=== PATIENT | female | born 1950 | race Caucasian/White ===

== ENCOUNTER 2024-12-29 21:49 | Observation (INO) | payer MEDICARE, SELFPAY ==
[2024-12-29 22:07] VITALS: BP 134/89; PULSE 109; RESP 14; TEMP 36.5; O2SAT 98; BMI 23.4
--- NOTE | 2024-12-29 22:08 | HMH.EDGENADL ---
Discharge Plan Disposition Patient Disposition: Admitted Condition: Good Clinical Impressions Clinical Impression: Transaminitis Discharge ED Provider: Radha Che General Adult HPI General Chief complaint: Dizziness Stated complaint: back,side,stomach pain, weak Time Seen by Provider: 12/29/24 22:08 History of Present Illness HPI narrative: Patient is a 74-year-old female with no significant past medical history who presented to the emergency department with left flank pain bilateral lower abdominal pain since yesterday. Patient states that her pain is currently a 6 out of 10. Does not radiate. Patient denies any urinary symptoms. Patient denies any fevers. Patient denies any nausea vomiting or diarrhea. Patient denies any prior abdominal surgeries. Patient has not had any fevers. Patient denies any recent illnesses. Patient has not had any recent travel. Patient denies any chest pain shortness of breath. Related Data Home Medications ?Medication ?Instructions ?Recorded ?Confirmed calcium carbonate 1,250 mg PO DAILY 12/30/24 12/30/24 cetirizine 10 mg tablet 10 mg PO DAILY 12/30/24 12/30/24 fluoxetine 40 mg capsule 40 mg PO DAILY 12/30/24 12/30/24 losartan 50 mg tablet 50 mg PO BID 12/30/24 12/30/24 montelukast 10 mg tablet 10 mg PO HS 12/30/24 12/30/24 omeprazole 20 mg capsule,delayed 20 mg PO DAILY 12/30/24 12/30/24 release simvastatin 20 mg tablet 20 mg PO HS 12/30/24 12/30/24 Allergies Allergy/AdvReac Type Severity Reaction Status Date / Time Unable to Assess Allergy Verified 12/29/24 22:14 [facility] Disclaimer: The information contained in this section may have been updated after the patient was seen, as this information can be updated by other users. Social History Smoking Status: Never smoker alcohol intake: never current occupational status: other Travel in the last 8 weeks?: None ROS Obtained: Yes All systems reviewed & no additional complaints except as documented and Yes Systems reviewed as appropriate & no additional complaints except as documented Physical Exam General General appearance: alert and in no apparent distress Head Head exam: atraumatic, normocephalic and normal inspection Eye Eye exam: Present normal appearance, PERRL and EOMI; Absent scleral icterus ENT ENT exam: Present normal exam and normal external ear exam Neck Neck exam: Present normal inspection and full ROM Chest Chest inspection: Present normal inspection and symmetric chest wall rise Respiratory Respiratory exam: Present normal lung sounds bilaterally; Absent respiratory distress or wheezes Cardiovascular Cardiovascular exam: Present regular rate, normal rhythm and normal heart sounds Abdominal Exam Abdominal exam: Present soft, distention and tenderness (Left CVA tenderness, bilateral lower quadrant abdominal tenderness); Absent guarding or rebound Extremities Exam Extremities exam: Present normal inspection and full ROM Back Exam Back exam: Present normal inspection and full ROM Neurological Exam Neurological exam: Present alert and oriented X3 Psychiatric Psychiatric exam: Present normal affect and normal mood Skin Skin exam: Present warm and dry Medical Decision Making Medical Records Medical records reviewed: Yes I reviewed the patient's medical records. Screening: Per USPSTF and CDC recommendations, given the prevalence of disease in our region, it is our hospital?s policy to screen for HIV and viral Hepatitis for all patients aged 18 and over and those with ongoing risk factors. Cole Inquiry Pt receiving controlled substance: No Vital Signs: 12/29/24 22:07 12/29/24 22:15 12/29/24 22:21 Temperature 97.7 F 97.7 F Temperature Source Oral Oral Pulse Rate 109 H 98 H Pulse Rate [Right] 109 H Respiratory Rate 14 14 19 Blood Pressure 134/89 134/89 Blood Pressure [Right Arm] 134/89 Blood Pressure Mean [Right Arm] 104 02 Sat by Pulse Oximetry 98 98 98 Oxygen Delivery Method Room Air Room Air Room Air 12/30/24 00:03 Temperature 98.1 F Temperature Source Pulse Rate 81 Pulse Rate [Right] Respiratory Rate 18 Blood Pressure 150/89 H Blood Pressure [Right Arm] Blood Pressure Mean [Right Arm] 02 Sat by Pulse Oximetry 96 Oxygen Delivery Method Room Air Lab Data Lab results reviewed: Yes I reviewed the patient's lab results. Lab Results 12/29/24 22:05: WBC 5.8, RBC 4.92, Hgb 14.4, Hct 44.6, MCV 90.7, MCH 29.3, MCHC 32.3, RDW 14.3, Plt Count 222, MPV 10.8 H, Neut % (Auto) 59.6, Lymph % (Auto) 27.1, Williamson % (Auto) 12.9 H, Eos % (Auto) 0.0 L, Baso % (Auto) 0.2, Neut # (Auto) 3.5, Lymph # (Auto) 1.6, Williamson # (Auto) 0.8, Eos # (Auto) 0.0, Baso # (Auto) 0.0, PT 10.7, INR 0.96, Sodium 134 L, Potassium 3.3 L, Chloride 93 L, Carbon Dioxide 28, Anion Gap 16.3 H, BUN 12, Creatinine 0.90, Estimated Creat Clear 45, Estimated GFR 62, Est GFR ( Amer) 74, Glucose 151 H, Lactate 2.5 H, Calcium 9.9, Magnesium 2.2, Total Bilirubin 0.7, AST 669 H*, ALT 517 H*, Alkaline Phosphatase 68, Total Protein 8.6 H, Albumin 5.0, Globulin 3.6 H, Albumin/Globulin Ratio 1.4, Lipase 142, Acetaminophen < 10 L 12/29/24 22:05 12/29/24 22:05 Orders (Tests/Meds): ED MEDICATIONS Discontinued Medications Generic Name Dose Route Start Last Admin Trade Name Freq PRN Reason Stop Dose Admin Sodium Chloride 1,000 mls @ 999 mls/hr 12/29/24 22:12 12/29/24 22:30 Sod Chlor 0.9% 1000ml Bag IV 12/29/24 23:12 999 mls/hr .Q1H1M ONE Administration Iopamidol 75 ml 12/29/24 22:54 12/29/24 22:55 Iopamidol-370 (76%);100ml Bottle IV 12/29/24 22:55 75 ml ONCE ONE Administration Morphine Sulfate 4 mg 12/29/24 22:12 12/29/24 22:32 Morphine 2mg/Ml Syringe IV 12/29/24 22:13 4 mg ONCE ONE Administration Ondansetron HCl 4 mg 12/29/24 22:12 12/29/24 22:31 Ondansetron 4mg/2ml Vial IM 12/29/24 22:13 4 mg ONCE ONE Administration Sodium Chloride 10 ml 12/29/24 22:54 12/29/24 22:55 Sodium Chloride 0.9% 10ml Syr (Rad Only) IV 12/29/24 22:55 10 ml ONCE ONE Administration ORDERS Category Date Time Status CT abdomen pelvis w con Stat Cat Scan 12/29/24 22:12 Completed POCUS Point of Care (ER Only) Stat Exams 12/29/24 23:03 Completed Acetaminophen Stat Lab 12/29/24 22:05 Completed CBC w/Auto Diff [Complete Blood Count Auto Diff] Stat Lab 12/29/24 22:05 Completed CMP [Comprehensive Metabolic Panel] Stat Lab 12/29/24 22:05 Completed Hepatitis Panel Stat Lab 12/29/24 22:05 Received Lactic Acid Stat Lab 12/29/24 22:05 Completed Lipase Stat Lab 12/29/24 22:05 Completed MAG [Magnesium] Stat Lab 12/29/24 22:05 Completed Prothrombin Time INR Stat Lab 12/29/24 22:05 Completed UA [Urinalysis and Microscopic] Stat Lab 12/29/24 22:15 Ordered Urine Culture Stat Micro 12/29/24 22:15 Ordered Medical Decision Narrative: Patient is an otherwise healthy 74-year-old female with no significant past medical history who presented to the emergency department with abdominal pain and left flank pain. On arrival, patient was hemodynamically stable with unremarkable vital signs. Differential includes but not limited to: Appendicitis, diverticulitis, intra-abdominal abscess, UTI, pyelonephritis, amongst others. Patient's labs were reviewed and interpreted by myself: Patient had no leukocytosis on CBC, hemoglobin was stable. CMP was unremarkable. INR was normal. AST and ALT were significantly elevated AST was 669 and ALT was 517. Bilirubin was normal. Lactate mildly elevated at 2.5. Tylenol level normal, hepatitis panel sent. CT abdomen pelvis did show a right 4 cm ovarian cyst but no other acute pathology. Patient is from [place] therefore no further lab work was able to be seen or for comparison. Hospital medicine was consulted for admission for workup of patient's transaminitis. UA was pending at the time of admission. Critical Care Critical Care Time Critical Care Time: No
--- NOTE | 2024-12-29 22:12 | CT_ITS ---
PROCEDURE INFORMATION: Exam: CT Abdomen And Pelvis With Contrast Exam date and time: 12/29/2024 10:55 PM Age: 74 years old Clinical indication: Abdominal pain; Localized; Left lower quadrant (llq); Additional info: Llq and L flank pain TECHNIQUE: Imaging protocol: Computed tomography of the abdomen and pelvis with contrast. Radiation optimization: All CT scans at this facility use at least one of these dose optimization techniques: automated exposure control; mA and/or kV adjustment per patient size (includes targeted exams where dose is matched to clinical indication); or iterative reconstruction. Contrast material: ISOVUE; Contrast volume: 75 ml; Contrast route: IV; COMPARISON: No relevant prior studies available. FINDINGS: Bibasilar atelectasis and scarring Liver: Normal. No mass. Gallbladder and biliary ducts: Normal. No calcified stones. No ductal dilation. Pancreas: Normal. No ductal dilation. Spleen: Normal. No splenomegaly. Adrenal glands: Normal. No mass. Kidneys and ureters: No hydronephrosis. Multiple cysts involving bilateral kidneys including parapelvic cyst. No obstructive uropathy Stomach and bowel: Diverticulosis without diverticulitis. No small bowel obstruction. No colitis Appendix: No evidence of appendicitis. Intraperitoneal space: Unremarkable. No free air. No significant fluid collection. Vasculature: Unremarkable. No abdominal aortic aneurysm. Lymph nodes: Unremarkable. No enlarged lymph nodes. Urinary bladder: Unremarkable as visualized. Reproductive: 4 cm right ovarian cyst. Bones/joints: Unremarkable. No acute fracture. Soft tissues: Unremarkable. IMPRESSION: No acute posttraumatic findings in the abdomen pelvis Right ovarian cyst. Is abnormal for patient of this age. Recommend outpatient nonemergent ultrasound to exclude underlying neoplasm COMMENTS: Consistent with the [employer]'s Incidental Findings Committee white paper (J Am Cira Radiol 2018): Any incidental renal lesion less than 1 cm or classified as too small to characterize, or any incidental cystic renal lesion characterized as simple-appearing, is likely benign. No follow-up imaging is recommended for these lesions per consensus recommendations based on imaging criteria.
[2024-12-29 22:15] VITALS: BP 134/89; PULSE 109; RESP 14; TEMP 36.5; O2SAT 98
--- OUTSIDE RECORDS SUMMARY | 2024-12-29 22:19 | XMS_ITS | Clinical Summary ---
Author Organization [facility] Address [address] [place] [address] Care Team Providers Care Lockstitch Shoulder Joiner Name Role Phone Unavailable Primary Care Provider Unavailabl e Social History Tobacco Use Types Packs/Day Years Used Date Smoking Tobacco: Never Assessed Comments Unknown Sex and Gender Information Value Date Recorded Sex Assigned at Not on file Legal Sex Female 10:39 PM EDT Gender Identity Not on file Sexual Orientation Not on file Plan of Treatment Health Maintenance Due Date Last Done Comments Hepatitis C Screening 1952 DTap,Tdap,and Td (1 - Tdap) 1963 Mammogram Screening 1992 Colonoscopy 1997 Pneumococcal 50+ (1 of 1 - PCV) 2002 Shingrix (#1) 2002 DEXA Scan 2017 Influenza Vaccine (#1) 2024 RSV Vaccine (60+ or ) (1 - 1-dose 75+ series) 2027 HPV Aged Out No longer eligi ble based on patient's age to complete this topic Meningococcal conjugate susan nt 4 (MCV4) Aged Out No longer eligible b ased on patient's age to complete this topic RSV Immunization (<20 months) Aged Out No longer eligible based on patient's age to complete this topic
--- OUTSIDE RECORDS SUMMARY | 2024-12-29 22:19 | XMS_ITS | Clinical Summary ---
Author Organization [facility] Address [address], [address] [place] [address] Care Team Providers Care Optical Laboratory Mechanic Name Role Phone Shama Collins PA-C Primary Care Provider [phone] Allergies Active Allergy Reactions Criticality Noted Date Comments Paroxetine Hcl 12/08/2014 Medications FLUoxetine (PROZAC) 20 MG capsule Take 20 mg by mouth daily Active lisinopril (PRINIVIL;ZESTR IL) 10 MG tablet Take 10 mg by mouth daily Active cetirizine (ZYRTEC) 10 MG tablet Take 10 mg by mouth daily Active simvastatin (ZOCOR) 20 MG tablet Take 20 mg by mouth nightly Active latanoprost (XALATAN) 0.005 % ophthalmic solution Place 1 drop into both eyes nightly Active fluticasone (FLOVENT HFA) 110 MCG/ACT inhaler Inhale 1 puff into the lungs 2 times daily Active calcium-vitamin D (OSCAL-500) 500-200 MG-UNIT per tablet Take 1 tablet by mouth 2 times daily Active oxyCODONE (ROXICODONE) 5 MG immediate release tablet Take 1-2 tablets by mouth every 4 hours as needed for Pain 30 tablet 0 12/12/2014 Active Active Problems Problem Noted Date Diagnosed Date Diverticulitis large intestine 12/08/2014 Diverticulitis of large inte beba without perforation or abscess without bleeding Diverticulitis of large intestine Immunizations Immunization Administration Dates Next Due Pneumococcal, PPSV23, PNEUMO VAX 23, (age 2y+), SC/IM, 0.5mL 12/10/2014 Social History Tobacco Use Types Packs/Day Years Used Date Smoking Tobacco: Former Alcohol Use Standard Drinks/Week Comments No 0 (1 standard drink = 0.6 oz pur e alcohol) Comments No Sex and Gender Information Value Date Recorded Sex Assigned at Not on file Legal Sex Female 6:03 PM EDT Gender Identity Not on file Sexual Orientation Not on file Last Filed Vital Signs Vital Sign Reading Time Taken Comments Blood Pressure 132/86 12/12/2014 1:46 PM EDT Pulse 98 12/12/2014 1:46 PM EDT Temperature 37.1 C (98.7 F) 12/12/2014 1:46 PM EDT Respiratory Rate 14 12/12/2014 1:46 PM EDT Oxygen Saturation 93% 12/12/2014 1:46 PM EDT Inhaled Oxygen Concentration - - Weight - - Height - - Body Mass Index - - Plan of Treatment Not on file Insurance Advance Directives * Full Code (Latest Code Status on File) Date Activated Date Inactivated Comments 12/08/2014 9:05 PM 12/12/2014 7:43 PM Care Teams Optical Laboratory Mechanic Relationship Specialty Start Date End Date Shama Collins PA-C PCP - General Physician Phlebotomy Services Technician 12/09/14
--- OUTSIDE RECORDS SUMMARY | 2024-12-29 22:19 | XMS_ITS | Referral Summary ---
Author Organization [facility] Address [address] [place] [id number] Care Team Providers Care Computer Information Systems Professor Name Role Phone Unavailable Primary Care Provider Unavailabl e Social History Tobacco Use Types Packs/Day Years Used Date Smoking Tobacco: Never Assessed Comments Unknown Sex and Gender Information Value Date Recorded Sex Assigned at Not on file Legal Sex Female 10:39 PM EDT Gender Identity Not on file Sexual Orientation Not on file Plan of Treatment Not on file
[2024-12-29 22:21] VITALS: BP 134/89; PULSE 98; RESP 19; O2SAT 98
[2024-12-29 22:22] LABS: Hematocrit 44.6 % (37.0-47.0); Hemoglobin 14.4 g/dL (12.2-16.2); Immature Granulocytes % 0.2 %; Mean Corpuscular HGB Conc 32.3 g/dL (31.8-35.4); Mean Corpuscular Hemoglobin 29.3 pg (27.0-31.2); Mean Corpuscular Volume 90.7 fl (81-99); Nucleated Red Blood Cells % 0 %; Platelet Count 222 K/mm3 (142-424); Red Blood Count 4.92 M/mm3 (4.20-5.40); Red Cell Distribution Width-SD 47.9 fL; White Blood Count 5.8 K/mm3 (4.8-10.8)
[2024-12-29] MEDS: 0.9 % SODIUM CHLORIDE 1000ML 1,000 ML 999 ML IV (22:30)
[2024-12-29 22:31] LABS: Albumin Level 5.0 g/dl (3.5-5.0); Chloride 93 mmol/L (98-107); Potassium 3.3 mmoL/L (3.5-5.1); Sodium 134 mmol/L (136-145)
[2024-12-29] MEDS: ONDANSETRON 4MG/2ML VIAL 4 MG IM (22:31)
[2024-12-29] MEDS: MORPHINE 2MG/ML SYRINGE 4 MG IV (22:32)
[2024-12-29 22:34] LABS: Alanine Aminotransferase 517 U/L (12-78); Albumin/Globulin Ratio 1.4 (1.1-1.8); Alkaline Phosphatase 68 U/L (38-126); Anion Gap 16.3 mEq/L (5-15); Aspartate Amino Transferase 669 U/L (14-36); Bilirubin,Total 0.7 mg/dl (0.2-1.3); Blood Urea Nitrogen 12 mg/dl (7-17); Calcium 9.9 mg/dl (8.4-10.2); Carbon Dioxide 28 mmol/L (22.0-30.0); Creatinine Clearance Estimated 45 mL/min (50-200); Creatinine,Serum 0.90 mg/dl (0.52-1.04); Estimated Glomerular Filt Rate 62 ml/min (>60); GFR (African American) 74 ML/MIN (>60); Globulin 3.6 g/dL (1.3-3.2); Glucose 151 mg/dl (74-100); Lipase 142 U/L (23-300); Total Protein,Serum 8.6 g/dl (6.3-8.2)
[2024-12-29 22:35] LABS: Magnesium 2.2 mg/dl (1.6-2.3)
[2024-12-29] MEDS: IOPAMIDOL-370 (76%);100ML BOTTLE 75 ML IV (22:55)
[2024-12-29] MEDS: SODIUM CHLORIDE 0.9% 10ML SYR (RAD ONLY) 10 ML IV (22:55)
[2024-12-29 23:09] LABS: Acetaminophen < 10 ug/ml (10-30)
[2024-12-29 23:11] LABS: INR 0.96 (0.9-1.1); Prothrombin Time 10.7 seconds (10.1-12.5)
--- NOTE | 2024-12-30 00:02 | PC.NURSE ---
House Supervisior contacted r/t Admit
[2024-12-30 00:03] VITALS: BP 150/89; PULSE 81; RESP 18; TEMP 36.7; O2SAT 96
--- NOTE | 2024-12-30 00:17 | US_ITS ---
FINAL REPORT TECHNIQUE: Sonographic images of the right upper quadrant were obtained. CLINICAL HISTORY: elevated liver enzymes FINDINGS: PANCREAS: Unremarkable. LIVER: Homogeneous. No focal hepatic lesion. No intrahepatic biliary ductal dilatation. GALLBLADDER: There is a small echogenic focus in the dependent portion of the gallbladder which is nonmobile and without shadowing, favor polyp. No gallbladder wall thickening or pericholecystic fluid. COMMON DUCT: 4 mm. Normal for age. RIGHT KIDNEY: The right kidney measures 9.9 cm. There is hydronephrosis without mass or stone.. FREE FLUID: None. IMPRESSION: 1. Gallbladder polyp. 2. Mild right hydronephrosis. Reviewed, Interpreted and Dictated by Roseanne Loredo MD Transcribed by Roxanne Ty Authenticated and [facility]
--- NOTE | 2024-12-30 00:23 | PC.NURSE ---
Report called to UNRULY Martinez
[2024-12-30 00:24] VITALS: BP 150/89; PULSE 81; RESP 18; TEMP 36.7; O2SAT 96
--- NOTE | 2024-12-30 00:29 | P.HP_ITS ---
<Statement entered by Barak Arciniega MD - 12/30/24 09:11> Personally evaluated the patient and agree with plan of care as outlined by the [employer] SUPERVISOR. History of Present Illness *Admission Date: 12/30/24 *Reason for visit:: Abdominal pain *History of present illness: This is a 74-year-old female who has a past medical history significant for diverticulosis, hyperlipidemia, GERD, and hypertension who presents with a chief complaint of bilateral lower abdominal pain and back pain. Due to patient's symptomology she presented to the emergency room for evaluation. While in the emergency room, CT scan of the abdomen pelvis was negative for any acute intra-abdominal or intrapelvic process. Patient had an incidental finding of an elevated AST and ALT. Due to these findings, patient has been admitted for further management. During my evaluation of the patient, patient states she is here visiting her daughter from [place] and, she has been having the a forementioned symptomology for the past 2 days that have progressively gotten worse. Patient states she has had a poor appetite and has not been able to eat or drink. She was able to tolerate some chicken noodle soup and some crackers last night but other than that she has not eaten very much. Patient states that she had a subjective fever but she did not check her temperature. Moreover, patient states that she has been experiencing weakness. She also mentions that she has been having an i nability to lay flat more so due to lower back pain. On further questioning, patient reports she recently was seen by her primary care physician on Saturday of last week. She reports he/C obtained routine labs and they were within normal limits. Patient was unsure what lab values were obtained. She is currently denying any chest pain, lightheadedness, dizziness, rigors, shortness of breath, dyspnea, hematochezia, hematemesis, hematuria, nausea, vomiting, PND, orthopnea, lower extremity edema, or diarrhea. Additional pertinent vitals obtained include sodium 134, potassium of 3.3, chloride of 93, blood glucose of 151, lactate of 2.5, AST of 669, ALT of 517, total protein 8.6, and Tylenol level less than 10. Patient reports she does not use/take Tylenol but she did take 1 aspirin yesterday. [facility] Disclaimer: The information contained in this section may have been updated after the patient was seen, as this information can be updated by other users. Social History (Updated 12/30/24 @ 00:48 by Ck Sagastume APRN) Smoking Status: Never smoker alcohol intake: never current occupational status: unemployed Travel in the last 8 weeks?: Inside the [place] Review of Systems Review of Systems Review of systems:: pertinent systems reviewed and negative unless documented below Constitutional Constitutional: Reports anorexia, Reports poor appetite, Reports lethargy and Reports weakness Eyes Eyes: Reports system reviewed and no additional complaints, except as documented ENT Ears, Nose, Mouth, and Throat: Reports system reviewed and no additional complaints, except as documented *Cardiovascular Cardiovascular: Reports system reviewed and no additional complaints, except as documented *Respiratory Respiratory: Reports system reviewed and no additional complaints, except as documented *Gastrointestinal Gastrointestinal: Reports abdominal pain *Genitourinary Genitourinary: Reports system reviewed and no additional complaints, except as documented *Musculoskeletal Musculoskeletal: Reports system reviewed and no additional complaints, except as documented and Reports back pain Integumentary/Breasts Skin/Breast: Reports system reviewed and no additional complaints, except as documented *Neurologic Neurologic: Reports weakness Psychiatric Psychiatric: Reports system reviewed and no additional complaints, except as documented Endocrine Endocrine: Reports system reviewed and no additional complaints, except as documented Hematologic/Lymphatic Hematologic/Lymphatic: Reports system reviewed and no additional complaints, except as documented Allergic/Immunologic Allergic/Immunologic: Reports system reviewed and no additional complaints, except as documented Meds Home Medications and Allergies Home Medications ?Medication ?Instructions ?Recorded ?Confirmed ?Type calcium carbonate 500 mg PO BID 12/30/2412/30 History cetirizine 10 mg tablet 10 mg PO DAILY 12/30/2412/08 History fluoxetine 10 mg capsule 10 mg PO DAILY 12/30/2412/08 History fluoxetine 40 mg capsule 40 mg PO DAILY 12/30/2412/08 History latanoprost 0.005 % eye drops 2 drp Eye-Both 12/30/24 History losartan 50 mg tablet 50 mg PO BID 12/30/24 History montelukast 10 mg tablet 10 mg PO 12/30/24 5 History omeprazole 20 mg capsule,delayed 20 mg PO DAILY 12/30/24 History release simvastatin 20 mg tablet 20 mg PO HS 12/30/24 5 History New Prescriptions to Start Prescriptions: Allergies Allergy/AdvReac Type Severity Reaction Status Date / Time paroxetine (From Paxil) Allergy Heartburn Verified 12/30/24 00:45 Exam Data for Last 24 hours Vital signs and Labs for Last 24 Hours: Temp Pulse Resp BP Pulse Ox O2 Del Method 98.1 F 81 18 150/89 H 96 Room Air 12/30/24 00:12/30/24 00:24 12/30/24 00:24 12/30/24 00:24 12/30/24 00:03 12/30/24 00:24 Laboratory Results - last 24 hr 12/29/24 22:05: WBC 5.8, RBC 4.92, Hgb 14.4, Hct 44.6, MCV 90.7, MCH 29.3, MCHC 32.3, RDW 14.3, Plt Count 222, MPV 10.8 H, Neut % (Auto) 59.6, Lymph % (Auto) 27.1, [place] % (Auto) 12.9 H, Eos % (Auto) 0.0 L, Baso % (Auto) 0.2, Neut # (Auto) 3.5, Lymph # (Auto) 1.6, [place] # (Auto) 0.8, Eos # (Auto) 0.0, Baso # (Auto) 0.0, PT 10.7, INR 0.96, Sodium 134 L, Potassium 3.3 L, Chloride 93 L, Carbon Dioxide 28, Anion Gap 16.3 H, BUN 12, Creatinine 0.90, Estimated Creat Clear 45, Estimated GFR 62, Est GFR ( Amer) 74, Glucose 151 H, Lactate 2.5 H, Calcium 9.9, Magnesium 2.2, Total Bilirubin 0.7, AST 669 H*, ALT 517 H*, Alkaline Phosphatase 68, Total Protein 8.6 H, Albumin 5.0, Globulin 3.6 H, Albumin/Globulin Ratio 1.4, Lipase 142, Acetaminophen < 10 L I & O for Last 24 hours: Intake & Output 12/27/24 12/28/24 12/29/24 12/30/24 23:59 23:59 23:59 23:59 Weight 56.245 kg Constitutional Constitutional: no acute distress *Routine HEENT Exam Head: Present normocephalic and atraumatic Eye: Present EOMI, PERRL and normal accommodation ENT: Present mucous membranes moist *Routine Neck Exam Neck: Present supple, full ROM and trachea midline *Routine Respiratory Exam Respiratory: Present CTA bilaterally, normal respiratory effort, able to speak in complete sentences and symmetric chest movement *Routine Cardiovascular Exam Cardiovascular: Present RRR, Normal S1 and Normal S2 *Routine Abdominal Exam Abdominal: Present soft and normoactive bowel sounds *Routine Rectal Exam Rectal:: deferred *Routine Genitalia Exam Genitalia:: deferred *Routine Extremities Exam Extremities: Present full ROM, pulses intact and normal capillary refill Routine Back/Spine/Pelvis Exam Back/Spine: Present full ROM *Routine Skin Exam Skin: Present intact, dry, warm and normal turgor *Routine Neurological Exam Neurological: Present alert, oriented X3, CN II-XII intact, moving all extremities and normal speech Routine Psychiatric Exam Psychiatric: Present normal affect, normal thought process, cooperative, good insight and good judgment H&P: Result Impressions 74-year-old female with known history of diverticulosis who presents with a chief complaint of lower abdominal and lower back pain. Had an incidental finding of significant transaminitis of unknown origin. Examination reveals no asterixis Assessment and Plan *Assessment and plan (1) Transaminitis: Status: Acute Category: Medical Code(s): R74.01 - Elevation of levels of liver transaminase levels (2) Hypokalemia: Status: Acute Category: Medical Code(s): E87.6 - Hypokalemia (3) Lactic acid acidosis: Status: Acute Category: Medical Code(s): E87.20 - Acidosis, unspecified (4) Hyperglycemia: Status: Acute Category: Medical Code(s): R73.9 - Hyperglycemia, unspecified Plan Assessment: Transaminitis: AST greater than ALT: Ratio 1.3 -Is not clear what is driving patient's elevated liver enzymes - Review of patient's outpatient medication reveals she is currently prescribed simvastatin and omeprazole - Hepatitis panel has been obtained - Will obtain anemia profile, ammonia, GGT, lipid panel, alpha 1 antitrypsin phenotype, ANYA, AFP, ceruloplasmin, and liver ultrasound - Will rule out any viral causes - This may be medication induced-this is a diagnosis of exclusion - Will consult GI in the a.m. - Will trend patient's liver enzymes-CMP sherin Mild hypokalemia -20 mEq of potassium chloride x 1 Lactic acidosis -This is mild - Patient appears to be euvolemic - May have mild lactic acidosis due to decreased p.o. intake - Will give normal saline at 100 mL an hour - Repeat lactate level in the a.m. Hyperglycemia - Patient has no formal diagnosis of diabetes - Unsure of patient's last p.o. intake but she did mention she ate a small amount of soup and some crackers - Will obtain hemoglobin A1c - And trend blood glucose daily - If repeated levels reveal fasting blood glucose greater than 120, will consider sliding scale insulin to manage stress-induced hyperglycemia Plan: Admit patient to the MedSurg unit Activity as tolerated Will keep patient n.p.o. and then give cardiac diet after liver ultrasound CMP/CBC daily 40 mg Lovenox subcu daily for DVT prophylax 2 mg morphine IV push every 4 hours as needed severe pain 4 mg Zofran IV push to 8 hours pain nausea vomit 50 mg of tramadol p.o. every 6 hours Full code I have discussed this case with attending physician Dr. Arciniega and I look forivelisse nguyen to more input
[2024-12-30 00:38] VITALS: BP 132/77; PULSE 74; RESP 16; TEMP 36.8; O2SAT 97; BMI 22.4
[2024-12-30] MEDS: 0.9 % SODIUM CHLORIDE 1000ML 1,000 ML 100 ML IV (00:38)
[2024-12-30] MEDS: POTASSIUM CHLORIDE 20MEQ TAB 20 MEQ PO (01:17)
[2024-12-30 02:22] LABS: Reflex Lactic Add Lactic Reflex
[2024-12-30 02:22] LABS: Microscopic, Urine URINE MICROSCOPIC (MICROSCOPIC)
[2024-12-30 02:28] LABS: Color,Urine YELLOW (Yellow); Glucose,Urine (UA) Negative (Negative); Ketones,Urine Negative (Negative); Leukocyte Esterase,Urine 1+ (Negative); PH,Urine 6.0 (5.0-8.5); Protein,Urine 2+ (Negative); Specific Gravity, Urine >= 1.030 (1.005-1.030); Urobilinogen,Urine 1.0 EU/dl (0.2)
[2024-12-30 02:30] LABS: Bilirubin,Urine 1+ (Negative)
[2024-12-30 02:53] LABS: RBC,Urine Occasional #/hpf (0-3)
[2024-12-30 02:54] LABS: Bacteria,Urine 4+ /lpf; Squamous Epithelial Cell,Urine Occasional #/hpf (0-5)
[2024-12-30 03:04] LABS: Lactic Acid Follow Up (RFLX 1) 0.8 mmol/L (0.7-2.1)
--- NOTE | 2024-12-30 03:30 | PC.NURSE ---
Admission assessments and patient's home medication reconciliation (via external medication history and patient's mail-order prescription/scripts) were completed by me during this shift. Ms Sharon Raphael was newly admitted this shift on behalf of the documented diagnosis transaminitis (elevated liver enzymes). Baseline AST 669 and baseline ALT 517 (resulted on 12/29/24 at 22:05). She is alert and oriented x4 but has expressed forgetfulness regarding her medical history; daughter, who has remained at the bedside, helped her recall bits and pieces upon assessment. Patient endorsed lower back pain, left-sided abdominal pain (with/without palpation), weakness, and poor appetite symptoms for the past couple days. Currently, the patient denies further abdominal pain, also denies reports of nausea. Nutrition consult was ordered (per protocol) for report of poor appetite and difficulty with swallowing. Vital signs are stable. Afebrile. Patient ambulates independently with standby assistance as needed. Oral potassium was given per MAR earlier this shift. Normal saline continues to infuse at 100 mL/hr. Patient remains NPO; she verbalizes an understanding of this. Ultrasound of the liver + GI consult ordered for this morning by Ashlyn Sagastume APRN. At this time, the patient is resting in bed with eyes closed, respirations even and unlabored on room air, and no apparent distress. No new needs vocalized thus far. Call light within reach.
[2024-12-30 03:55] VITALS: BP 111/69; PULSE 81; RESP 14; TEMP 36.9; O2SAT 93; BMI 22.4
[2024-12-30 05:56] LABS: Hematocrit 37.6 % (37.0-47.0); Immature Granulocytes % 0.3 %; Mean Corpuscular HGB Conc 31.9 g/dL (31.8-35.4); Mean Corpuscular Hemoglobin 29.3 pg (27.0-31.2); Mean Corpuscular Volume 91.7 fl (81-99); Nucleated Red Blood Cells % 0 %; Platelet Count 158 K/mm3 (142-424); Red Blood Count 4.10 M/mm3 (4.20-5.40); Red Cell Distribution Width-SD 48.7 fL; Reticulocyte % (Auto) 0.7 % (0.9-3.2); White Blood Count 3.6 K/mm3 (4.8-10.8)
[2024-12-30 05:59] LABS: Hemoglobin 12.0 g/dL (12.2-16.2)
[2024-12-30 06:03] LABS: Alanine Aminotransferase 390 U/L (12-78); Albumin Level 3.9 g/dl (3.5-5.0); Albumin/Globulin Ratio 1.3 (1.1-1.8); Alkaline Phosphatase 55 U/L (38-126); Anion Gap 9.4 mEq/L (5-15); Aspartate Amino Transferase 431 U/L (14-36); Bilirubin,Total 0.4 mg/dl (0.2-1.3); Blood Urea Nitrogen 10 mg/dl (7-17); Calcium 8.6 mg/dl (8.4-10.2); Carbon Dioxide 28 mmol/L (22.0-30.0); Chloride 103 mmol/L (98-107); Cholesterol 143 mg/dl (140-200); Creatinine Clearance Estimated 43 mL/min (50-200); Creatinine,Serum 0.80 mg/dl (0.52-1.04); Estimated Glomerular Filt Rate 71 ml/min (>60); GFR (African American) 85 ML/MIN (>60); Gamma Glutamyl Transpeptidase 17 U/L (12-43); Globulin 2.9 g/dL (1.3-3.2); Glucose 102 mg/dl (74-100); HDL Cholesterol 67 mg/dl (40-60); Potassium 4.4 mmoL/L (3.5-5.1); Sodium 136 mmol/L (136-145); Total Protein,Serum 6.8 g/dl (6.3-8.2); Triglycerides 104 mg/dl (30-150)
[2024-12-30 06:04] LABS: Ammonia < 9 umol/L (9-30)
[2024-12-30 06:51] LABS: Vitamin B12 355 pg/mL (239-931)
[2024-12-30 07:32] VITALS: BP 122/79; PULSE 91; RESP 16; TEMP 36.8; O2SAT 98
[2024-12-30 07:37] LABS: Folate 10.00 ng/mL
--- NOTE | 2024-12-30 07:48 | HMH.PHAINT1 ---
Pharmacy Intervention Comments: Home medication list verified using list from outpatient pharmacy and pt interview.
--- NOTE | 2024-12-30 09:29 | DIET.NUTRFU ---
This RD interviewed patient, she indicated to nursing she has swallowing issues. When interviewed she indicated she has no teeth and has some difficulty swallowing 'things get stuck every so often- couple times a mouth and she indicated she will follow-up with her regular diet as a outpatient. She is here visiting daughter, she is from [place]. She did request ground diet with thin liquids when ready for tray- reviewed with patients nurse. She would also benefit from supplements on trays, her appetite has been poor, reports stable weight. Will start chocolate ensure with trays.
[2024-12-30] MEDS: CEFTRIAXONE 1 GM 1 GM in 0.9 % SODIUM CHLORIDE 50 ML IV (09:38)
[2024-12-30 09:45] LABS: Adenovirus,PCR Not Detected (NotDetected); Chlamydophila Pneumoniae, PCR Not Detected (NotDetected); Coronovirus HKU1,PCR Not Detected (NotDetected); Influenza A, PCR Not Detected (NotDetected); Influenza AH1, 2009 Not Detected (NotDetected); Influenza AH1, PCR Not Detected (NotDetected); Influenza AH3,PCR Not Detected (NotDetected); Influenza B, PCR Not Detected (NotDetected); Mycoplasma Pneumoniae, PCR Not Detected (NotDetected); Parainfluenza 1, PCR Not Detected (NotDetected); Parainfluenza 2, PCR Not Detected (NotDetected); Parainfluenza 3, PCR Not Detected (NotDetected); Parainfluenza 4, PCR Not Detected (NotDetected)
[2024-12-30 10:21] LABS: Iron 33 ug/dL (37-170)
[2024-12-30 10:31] LABS: Total Iron Binding Capacity 222 ug/dL (265-497)
[2024-12-30 11:03] LABS: Ferritin 76.3 ng/ml (11.1-264)
[2024-12-30 11:31] LABS: Hemoglobin A1C 5.5 % (4.0-6.0)
[2024-12-30 12:03] LABS: Thyroid Stimulating Hormone 1.75 uIU/mL (0.465-4.68)
[2024-12-30 12:07] LABS: Ferritin 79.8 ng/ml (11.1-264)
[2024-12-30 12:08] LABS: Hemoglobin A1C 5.5 % (4.0-6.0)
[2024-12-30 12:39] VITALS: BMI 22.4
[2024-12-30 13:02] LABS: Coronavirus 19, PCR Detected (NotDetected)
--- NOTE | 2024-12-30 13:02 | EXP.GE.CONS ---
History of Present Illness *Admission Date: 12/30/24 *History of present illness: This is a 74-year-old female who has a past medical history significant for diverticulosis, hyperlipidemia, GERD, and hypertension who presents with a chief complaint of bilateral lower abdominal pain and back pain. Due to patient's symptomology she presented to the emergency room for evaluation. While in the emergency room, CT scan of the abdomen pelvis was negative for any acute intra-abdominal or intrapelvic process. Patient had an incidental finding of an elevated AST and ALT. Due to these findings, patient has been admitted for further management. During my evaluation of the patient, patient states she is here visiting her daughter from [place] and, she has been having the a forementioned symptomology for the past 2 days that have progressively gotten worse. Patient states she has had a poor appetite and has not been able to eat or drink. She was able to tolerate some chicken noodle soup and some crackers last night but other than that she has not eaten very much. Patient states that she had a subjective fever but she did not check her temperature. Moreover, patient states that she has been experiencing weakness. She also mentions that she has been having an inability to lay flat more so due to lower back pain. On further questioning, patient reports she recently was seen by her primary care physician on Saturday of last week. She reports he/C obtained routine labs and they were within normal limits. Patient was unsure what lab values were obtained. She is currently denying any chest pain, lightheadedness, dizziness, rigors, shortness of breath, dyspnea, hematochezia, hematemesis, hematuria, nausea, vomiting, PND, orthopnea, lower extremity edema, or diarrhea. Additional pertinent vitals obtained include sodium 134, potassium of 3.3, chloride of 93, blood glucose of 151, lactate of 2.5, AST of 669, ALT of 517, total protein 8.6, and Tylenol level less than 10. Patient reports she does not use/take Tylenol but she did take 1 aspirin yesterday. Per admission H&P This is a 74-year-old female who was complaining of right lower quadrant pain and left low back pain for couple of days. Her and her daughter both report that the patient developed that a couple of days ago. She also had a subjective fever at home and mild cough and nausea and poor appetite. No diarrhea but she has chronic constipation. Her last bowel movement was on Saturday. She occasionally uses a stool softener or Citrucel for constipation. She is scheduled for colonoscopy in [place] in a month. She is plan to go back to her home in [place] upon discharge from here. She was found to have an AST of 669 and ALT of 517 upon arrival to the ER. Bilirubin normal at 0.7 and alk phos normal at 68. Normal WBCs and platelets. Blood pressure within normal limits upon arrival. Mildly tachycardic at 109 initially upon arrival. No active fever or hypotension since admission. Overnight liver enzymes improved with an AST of 431 and ALT of 390 with a bilirubin of 0.4 and an alk phos of 55. CT scan and liver ultrasound both unremarkable for liver disease. She reports her brother has a diagnosis of alcoholic cirrhosis. No other liver disease in the family. No history of personal liver disease. She denies ever having elevated liver enzymes before. Acetaminophen levels within normal limits. She denies any new medications. She denies any NSAID use or alcohol consumption. She did take a single 325 mg aspirin prior to arrival. No other NSAIDs. She had a mild elevation of lactate and a mild elevation of glucose which have both improved significantly overnight. We are awaiting hepatitis panel. Patient found to be positive for COVID-19. [facility] Disclaimer: The information contained in this section may have been updated after the patient was seen, as this information can be updated by other users. Medical History (Updated 12/30/24 @ 13:10 by Marce Salguero APRN) GERD (gastroesophageal reflux disease) Hypertension Depression Diverticulosis Asthma Surgical History History of colonoscopy History of removal of skin mole History of tubal ligation Social History (Updated 12/30/24 @ 01:00 by Josiane Garner RN) Smoking Status: Never smoker alcohol intake: never current occupational status: unemployed Travel in the last 8 weeks?: Inside the [place] Have you lived/traveled outside US in past 30 days?: No Contact w/someone who lives/traveled outside US past 30 days?: No Exposure to someone with infectious disease in past 14 days?: No Do you have a fever (greater than 100.4 F or 38 C)?: No Have you tested positive for COVID-19?: No Exposed to someone with COVID-19 in past 14 days?: No Do you have a sore throat?: No Do you have a cough?: No Do you have any weakness?: Yes Do you have any diarrhea?: No Are you experiencing any unusual bleeding?: No Do you have any muscle aches/pain?: No Do you have any abdominal pain?: No Are you experiencing loss of taste or smell?: No Review of Systems Review of Systems Review of systems:: pertinent systems reviewed and negative unless documented below Constitutional Constitutional: Reports fever(s), Reports poor appetite and Reports weakness Eyes Eyes: Reports system reviewed and no additional complaints, except as documented *Cardiovascular Cardiovascular: Reports system reviewed and no additional complaints, except as documented *Respiratory Respiratory: Reports cough *Gastrointestinal Gastrointestinal: Reports abdominal pain, Reports belching, Reports bloating and Reports constipation *Genitourinary Genitourinary: Reports system reviewed and no additional complaints, except as documented *Musculoskeletal Musculoskeletal: Reports system reviewed and no additional complaints, except as documented Integumentary/Breasts Skin/Breast: Reports system reviewed and no additional complaints, except as documented *Neurologic Neurologic: Reports system reviewed and no additional complaints, except as documented and Reports weakness Meds Home Medications and Allergies Home Medications ?Medication ?Instructions ?Recorded ?Confirmed ?Type calcium carbonate 500 mg PO BID 12/30/24 12/30/24 History cefdinir 300 mg capsule 300 mg PO BID 4 days #8 caps 12/30/24 Rx cetirizine 10 mg tablet 10 mg PO DAILY 12/30/24 12/30/24 History fluoxetine 10 mg capsule 10 mg PO 1600 12/30/24 12/30/24 History fluoxetine 40 mg capsule 40 mg PO DAILY 12/30/24 12/30/24 History latanoprost 0.005 % eye drops 2 drp Eye-Both HS 12/30/24 12/30/24 History losartan 50 mg tablet 50 mg PO BID 12/30/24 12/30/24 History montelukast 10 mg tablet 10 mg PO HS 12/30/24 12/30/24 History omeprazole 20 mg capsule,delayed 20 mg PO DAILY 12/30/24 12/30/24 History release simvastatin 20 mg tablet 20 mg PO HS 12/30/24 12/30/24 History Held on 12/30/24. Instructions: Resume on 01/13/25. Hold until follow-up with PCP, as it can make liver function worse. New Prescriptions to Start Prescriptions: jesusir Barak Arciniega Allergies Allergy/AdvReac Type Severity Reaction Status Date / Time fluticasone (From Advair AdvReac Chest Pain Verified 12/30/24 01:24 Diskus) paroxetine (From Paxil) AdvReac Heartburn Verified 12/30/24 01:24 salmeterol (From Advair AdvReac Chest Pain Verified 12/30/24 01:24 Diskus) Exam (Inpt) Vital signs and Labs for Last 24 Hours: Temp Pulse Resp BP Pulse Ox O2 Del Method 98.3 F 91 H 16 122/79 98 Room Air 12/30/24 07:32 12/30/24 07:32 12/30/24 07:32 12/30/24 07:32 12/30/24 07:32 12/30/24 11:00 Laboratory Results - last 24 hr 12/29/24 21:57: Urine Color Yellow, Urine Appearance Cloudy, Urine pH 6.0, Ur Specific [employer] >= 1.030, Urine Protein 2+ A, Urine Glucose (UA) Negative, Urine Ketones Negative, Urine Blood Trace-i, Urine Nitrate Negative, Urine Bilirubin 1+ A, Urine Urobilinogen 1.0, Ur Leukocyte Esterase 1+ A, Urine RBC Occasional, Urine WBC 5-10, Ur Squamous Epith Cells Occasional, Urine Bacteria 4+ 12/29/24 22:05: WBC 5.8, RBC 4.92, Hgb 14.4, Hct 44.6, MCV 90.7, MCH 29.3, MCHC 32.3, RDW 14.3, Plt Count 222, MPV 10.8 H, Neut % (Auto) 59.6, Lymph % (Auto) 27.1, [place] % (Auto) 12.9 H, Eos % (Auto) 0.0 L, Baso % (Auto) 0.2, Neut # (Auto) 3.5, Lymph # (Auto) 1.6, [place] # (Auto) 0.8, Eos # (Auto) 0.0, Baso # (Auto) 0.0, PT 10.7, INR 0.96, Sodium 134 L, Potassium 3.3 L, Chloride 93 L, Carbon Dioxide 28, Anion Gap 16.3 H, BUN 12, Creatinine 0.90, Estimated Creat Clear 45, Estimated GFR 62, Est GFR ( Amer) 74, Glucose 151 H, Lactate 2.5 H, Calcium 9.9, Magnesium 2.2, Total Bilirubin 0.7, AST 669 H*, ALT 517 H*, Alkaline Phosphatase 68, Total Protein 8.6 H, Albumin 5.0, Globulin 3.6 H, Albumin/Globulin Ratio 1.4, Lipase 142, Acetaminophen < 10 L 12/30/24 02:45: Lactate 0.8 12/30/24 05:31: Ferritin 79.8, TSH 1.75 12/30/24 05:32: Hemoglobin A1c 5.5 12/30/24 05:39: WBC 3.6 L D, RBC 4.10 L, Hgb 12.0 L D, Hct 37.6, MCV 91.7, MCH 29.3, MCHC 31.9, RDW 14.5, Plt Count 158 D, MPV 10.8 H, Neut % (Auto) 57.4, Lymph % (Auto) 29.8, [place] % (Auto) 12.2 H, Eos % (Auto) 0.0 L, Baso % (Auto) 0.3, Neut # (Auto) 2.1, Lymph # (Auto) 1.1, [place] # (Auto) 0.4, Eos # (Auto) 0.0, Baso # (Auto) 0.0, Retic Count (auto) 0.7 L, Sodium 136, Potassium 4.4 D, Chloride 103, Carbon Dioxide 28, Anion Gap 9.4, BUN 10, Creatinine 0.80, Estimated Creat Clear 43, Estimated GFR 71, Est GFR ( Amer) 85, Glucose 102 H D, Hemoglobin A1c 5.5, Lactate 0.7, Calcium 8.6, Iron 33 L, TIBC 222 L, Iron Saturation 14.57799 L, Ferritin 76.3, Total Bilirubin 0.4, GGT 17, AST 431 H* D, ALT 390 H*, Alkaline Phosphatase 55, Ammonia < 9 L, Total Protein 6.8, Albumin 3.9 D, Globulin 2.9, Albumin/Globulin Ratio 1.3, Triglycerides 104, Cholesterol 143, LDL Cholesterol Direct < 30.00 L, VLDL Cholesterol 21, HDL Cholesterol 67 H, Cholesterol/HDL Ratio 2.1, Vitamin B12 355, Folate 10.00 I & O for Labs for Last 24 Hours: Intake & Output 12/28/24 12/29/24 12/30/24 12/31/24 11:59 11:59 11:59 11:59 Intake Total 1950 Output Total 0 0 Balance 1950 0 Weight 53.841 kg 53.841 kg Constitutional: no acute distress and cooperative Head: Present normocephalic and atraumatic Neck: Present normal inspection Respiratory: Present CTA bilaterally Cardiac: Present Reg Rate and Rhythm GI: Present soft, tenderness (Very mild TTP) and normal bowel sounds Skin: Present intact Results Labs 12/30/24 05:39 12/30/24 05:39 Labs: Laboratory Results - last 24 hr 12/29/24 21:57: Urine Color Yellow, Urine Appearance Cloudy, Urine pH 6.0, Ur Specific [employer] >= 1.030, Urine Protein 2+ A, Urine Glucose (UA) Negative, Urine Ketones Negative, Urine Blood Trace-i, Urine Nitrate Negative, Urine Bilirubin 1+ A, Urine Urobilinogen 1.0, Ur Leukocyte Esterase 1+ A, Urine RBC Occasional, Urine WBC 5-10, Ur Squamous Epith Cells Occasional, Urine Bacteria 4+ 12/29/24 22:05: WBC 5.8, RBC 4.92, Hgb 14.4, Hct 44.6, MCV 90.7, MCH 29.3, MCHC 32.3, RDW 14.3, Plt Count 222, MPV 10.8 H, Neut % (Auto) 59.6, Lymph % (Auto) 27.1, [place] % (Auto) 12.9 H, Eos % (Auto) 0.0 L, Baso % (Auto) 0.2, Neut # (Auto) 3.5, Lymph # (Auto) 1.6, [place] # (Auto) 0.8, Eos # (Auto) 0.0, Baso # (Auto) 0.0, PT 10.7, INR 0.96, Sodium 134 L, Potassium 3.3 L, Chloride 93 L, Carbon Dioxide 28, Anion Gap 16.3 H, BUN 12, Creatinine 0.90, Estimated Creat Clear 45, Estimated GFR 62, Est GFR ( Amer) 74, Glucose 151 H, Lactate 2.5 H, Calcium 9.9, Magnesium 2.2, Total Bilirubin 0.7, AST 669 H*, ALT 517 H*, Alkaline Phosphatase 68, Total Protein 8.6 H, Albumin 5.0, Globulin 3.6 H, Albumin/Globulin Ratio 1.4, Lipase 142, Acetaminophen < 10 L 12/30/24 02:45: Lactate 0.8 12/30/24 05:31: Ferritin 79.8, TSH 1.75 12/30/24 05:32: Hemoglobin A1c 5.5 12/30/24 05:39: WBC 3.6 L D, RBC 4.10 L, Hgb 12.0 L D, Hct 37.6, MCV 91.7, MCH 29.3, MCHC 31.9, RDW 14.5, Plt Count 158 D, MPV 10.8 H, Neut % (Auto) 57.4, Lymph % (Auto) 29.8, [place] % (Auto) 12.2 H, Eos % (Auto) 0.0 L, Baso % (Auto) 0.3, Neut # (Auto) 2.1, Lymph # (Auto) 1.1, [place] # (Auto) 0.4, Eos # (Auto) 0.0, Baso # (Auto) 0.0, Retic Count (auto) 0.7 L, Sodium 136, Potassium 4.4 D, Chloride 103, Carbon Dioxide 28, Anion Gap 9.4, BUN 10, Creatinine 0.80, Estimated Creat Clear 43, Estimated GFR 71, Est GFR ( Amer) 85, Glucose 102 H D, Hemoglobin A1c 5.5, Lactate 0.7, Calcium 8.6, Iron 33 L, TIBC 222 L, Iron Saturation 14.85027 L, Ferritin 76.3, Total Bilirubin 0.4, GGT 17, AST 431 H* D, ALT 390 H*, Alkaline Phosphatase 55, Ammonia < 9 L, Total Protein 6.8, Albumin 3.9 D, Globulin 2.9, Albumin/Globulin Ratio 1.3, Triglycerides 104, Cholesterol 143, LDL Cholesterol Direct < 30.00 L, VLDL Cholesterol 21, HDL Cholesterol 67 H, Cholesterol/HDL Ratio 2.1, Vitamin B12 355, Folate 10.00 Assessment and Plan *Assessment and plan (1) Transaminitis: Status: Acute Category: Medical Code(s): R74.01 - Elevation of levels of liver transaminase levels (2) Chronic constipation: Status: Acute Category: Medical Code(s): K59.09 - Other constipation (3) Bloating: Status: Acute Category: Medical Code(s): R14.0 - Abdominal distension (gaseous) (4) RLQ abdominal pain: Status: Acute Category: Medical Code(s): R10.31 - Right lower quadrant pain Plan 1. Transaminitis No history of liver disease. Denies ever having elevated liver enzymes. Has been acutely ill for couple days with abdominal pain, subjective fever, mild cough and nausea with loss of appetite. Incidental finding of elevated AST of 669 and ALT of 517 with a normal bilirubin and alk phos has decreased to 431 and 390 with normal bilirubin and alk phos. CT scan and liver ultrasound unremarkable. Her brother does have alcoholic cirrhosis but no other liver disease in the family. Acetaminophen within normal limits. Denies any new medications. Reports taking one 325 mg aspirin but no other [id number] medications. No NSAIDs. No alcohol. Appears to be an acute reactive hepatitis. No evidence of hypotension or fever on arrival here through the ER as I would expect with an ischemic hepatitis although she was complaining of dizziness and weakness upon arrival and had poor appetite for couple of days. Patient found to be positive for COVID-19. Likely this is reactive to acute viral illness. I will go ahead and check CMV and EBV testing. Awaiting hepatitis testing. As long as transaminases continue to trend towards normal, I recommend she follow-up as an outpatient after she gets back home to [place] to ensure normalization of her liver function tests. 2. Right lower quadrant abdominal pain/chronic constipation/blood Patient reports chronic constipation regularly skips 2 or 3 days between bowel movements. She does have a lot of excessive bloating belching and gassiness. She is scheduled for colonoscopy next month in [place]. She takes Citrucel or stool softeners as needed. I recommend given her underlying symptoms that she get on a MiraLAX and Citrucel combination every day to treat the constipation proactively maybe reduce some of her bloating symptoms. Abdominal pain has resolved today. No findings on CT scan
--- NOTE | 2024-12-30 14:40 | EXP.DC.SUM ---
General Admission date:: 12/30/24 HPI HPI HPI: This is a 74-year-old female who has a past medical history significant for diverticulosis, hyperlipidemia, GERD, and hypertension who presents with a chief complaint of bilateral lower abdominal pain and back pain. Due to patient's symptomology she presented to the emergency room for evaluation. While in the emergency room, CT scan of the abdomen pelvis was negative for any acute intra-abdominal or intrapelvic process. Patient had an incidental finding of an elevated AST and ALT. Due to these findings, patient has been admitted for further management. During my evaluation of the patient, patient states she is here visiting her daughter from [place] and, she has been having the a forementioned symptomology for the past 2 days that have progressively gotten worse. Patient states she has had a poor appetite and has not been able to eat or drink. She was able to tolerate some chicken noodle soup and some crackers last night but other than that she has not eaten very much. Patient states that she had a subjective fever but she did not check her temperature. Moreover, patient states that she has been experiencing weakness. She also mentions that she has been having an inability to lay flat more so due to lower back pain. On further questioning, patient reports she recently was seen by her primary care physician on Saturday of last week. She reports he/C obtained routine labs and they were within normal limits. Patient was unsure what lab values were obtained. She is currently denying any chest pain, lightheadedness, dizziness, rigors, shortness of breath, dyspnea, hematochezia, hematemesis, hematuria, nausea, vomiting, PND, orthopnea, lower extremity edema, or diarrhea. Additional pertinent vitals obtained include sodium 134, potassium of 3.3, chloride of 93, blood glucose of 151, lactate of 2.5, AST of 669, ALT of 517, total protein 8.6, and Tylenol level less than 10. Patient reports she does not use/take Tylenol but she did take 1 aspirin yesterday. Per admission H&P This is a 74-year-old female who was complaining of right lower quadrant pain and left low back pain for couple of days. Her and her daughter both report that the patient developed that a couple of days ago. She also had a subjective fever at home and mild cough and nausea and poor appetite. No diarrhea but she has chronic constipation. Her last bowel movement was on Saturday. She occasionally uses a stool softener or Citrucel for constipation. She is scheduled for colonoscopy in [place] in a month. She is plan to go back to her home in [place] upon discharge from here. She was found to have an AST of 669 and ALT of 517 upon arrival to the ER. Bilirubin normal at 0.7 and alk phos normal at 68. Normal WBCs and platelets. Blood pressure within normal limits upon arrival. Mildly tachycardic at 109 initially upon arrival. No active fever or hypotension since admission. Overnight liver enzymes improved with an AST of 431 and ALT of 390 with a bilirubin of 0.4 and an alk phos of 55. CT scan and liver ultrasound both unremarkable for liver disease. She reports her brother has a diagnosis of alcoholic cirrhosis. No other liver disease in the family. No history of personal liver disease. She denies ever having elevated liver enzymes before. Acetaminophen levels within normal limits. She denies any new medications. She denies any NSAID use or alcohol consumption. She did take a single 325 mg aspirin prior to arrival. No other NSAIDs. She had a mild elevation of lactate and a mild elevation of glucose which have both improved significantly overnight. We are awaiting hepatitis panel. Hospital Course Hospital Course Hospital Course: Sharon Raphael is a 74-year-old female who presented with abdominal pain, decreased appetite and was found to have significantly elevated AST/ALT. #COVID-19 #Acute viral reactive hepatitis ? Patient presented with significant left-sided abdominal pain, decreased appetite. ? Initial AST/ALT 669/517. Other LFTs normal. Broad workup was done, ultimately respiratory panel positive for COVID-19. ? AST/ALT improved to 300/297 with IV fluid rehydration. RUQ ultrasound showed gallbladder polyp and mild right hydronephrosis but no acute findings. Patient making urine. ? Patient's abdominal pain also resolved. Still not having great appetite with solid foods and feeling weak, but tolerating liquids and Ensure supplementation adequately. ? PT/OT consulted, did not recommend rehab. ? Encourage patient to stay hydrated, and follow-up with PCP within 1 week to repeat LFTs. ? Hold home simvastatin until follow-up with PCP. #UTI ? UA grossly abnormal, urine culture pending. Did initially have some left-sided flank pain. ? CT abdomen negative for pyelonephritis. ? Treated with IV ceftriaxone, transitioned to cefdinir 300 mg twice daily for 4 more days. #Anxiety/depression ? Continue home fluoxetine 50 mg daily. #Hypertension ? Continue home losartan 50 mg twice daily. #GERD ? Continue home PPI. Total time spent on discharge: 31 minutes on chart review, counseling, documentation, and direct care with patient. Exam Data for Last 24 hours Vital signs and Labs for Last 24 Hours: Temp Pulse Resp BP Pulse Ox O2 Del Method 98.3 F 91 H 16 122/79 98 Room Air 12/30/24 07:32 12/30/24 07:32 12/30/24 07:32 12/30/24 07:32 12/30/24 07:32 12/30/24 13:00 Laboratory Results - last 24 hr 12/29/24 21:57: Urine Color Yellow, Urine Appearance Cloudy, Urine pH 6.0, Ur Specific Coy >= 1.030, Urine Protein 2+ A, Urine Glucose (UA) Negative, Urine Ketones Negative, Urine Blood Trace-i, Urine Nitrate Negative, Urine Bilirubin 1+ A, Urine Urobilinogen 1.0, Ur Leukocyte Esterase 1+ A, Urine RBC Occasional, Urine WBC 5-10, Ur Squamous Epith Cells Occasional, Urine Bacteria 4+ 12/29/24 22:05: WBC 5.8, RBC 4.92, Hgb 14.4, Hct 44.6, MCV 90.7, MCH 29.3, MCHC 32.3, RDW 14.3, Plt Count 222, MPV 10.8 H, Neut % (Auto) 59.6, Lymph % (Auto) 27.1, [place] % (Auto) 12.9 H, Eos % (Auto) 0.0 L, Baso % (Auto) 0.2, Neut # (Auto) 3.5, Lymph # (Auto) 1.6, [place] # (Auto) 0.8, Eos # (Auto) 0.0, Baso # (Auto) 0.0, PT 10.7, INR 0.96, Sodium 134 L, Potassium 3.3 L, Chloride 93 L, Carbon Dioxide 28, Anion Gap 16.3 H, BUN 12, Creatinine 0.90, Estimated Creat Clear 45, Estimated GFR 62, Est GFR ( Amer) 74, Glucose 151 H, Lactate 2.5 H, Calcium 9.9, Magnesium 2.2, Total Bilirubin 0.7, AST 669 H*, ALT 517 H*, Alkaline Phosphatase 68, Total Protein 8.6 H, Albumin 5.0, Globulin 3.6 H, Albumin/Globulin Ratio 1.4, Lipase 142, Acetaminophen < 10 L 12/30/24 02:45: Lactate 0.8 12/30/24 05:31: Ferritin 79.8, TSH 1.75 12/30/24 05:32: Hemoglobin A1c 5.5 12/30/24 05:39: WBC 3.6 L D, RBC 4.10 L, Hgb 12.0 L D, Hct 37.6, MCV 91.7, MCH 29.3, MCHC 31.9, RDW 14.5, Plt Count 158 D, MPV 10.8 H, Neut % (Auto) 57.4, Lymph % (Auto) 29.8, [place] % (Auto) 12.2 H, Eos % (Auto) 0.0 L, Baso % (Auto) 0.3, Neut # (Auto) 2.1, Lymph # (Auto) 1.1, [place] # (Auto) 0.4, Eos # (Auto) 0.0, Baso # (Auto) 0.0, Retic Count (auto) 0.7 L, Sodium 136, Potassium 4.4 D, Chloride 103, Carbon Dioxide 28, Anion Gap 9.4, BUN 10, Creatinine 0.80, Estimated Creat Clear 43, Estimated GFR 71, Est GFR ( Amer) 85, Glucose 102 H D, Hemoglobin A1c 5.5, Lactate 0.7, Calcium 8.6, Iron 33 L, TIBC 222 L, Iron Saturation 14.63863 L, Ferritin 76.3, Total Bilirubin 0.4, GGT 17, AST 431 H* D, ALT 390 H*, Alkaline Phosphatase 55, Ammonia < 9 L, Total Protein 6.8, Albumin 3.9 D, Globulin 2.9, Albumin/Globulin Ratio 1.3, Triglycerides 104, Cholesterol 143, LDL Cholesterol Direct < 30.00 L, VLDL Cholesterol 21, HDL Cholesterol 67 H, Cholesterol/HDL Ratio 2.1, Vitamin B12 355, Folate 10.00 12/30/24 09:40: Chlamy pneumoniae PCR Not detected, Adenovirus (PCR) Not detected, B. pertussis DNA (PCR) Not detected, Coronavirus OC43 (PCR) Not detected, Coronavirus HKU1 (PCR) Not detected, Coronavirus 229E (PCR) Not detected, SARS-CoV-2 (PCR) Detected A, Coronavirus NL63 (PCR) Not detected, Human Metapneumovir PCR Not detected, Influenza A (H1) PCR Not detected, Influ A (H1N1/09) PCR Not detected, Influenza A (H3) PCR Not detected, Influenza Type A (PCR) Not detected, Influenza Type B (PCR) Not detected, M. pneumoniae (PCR) Not detected, Parainfluenza 1 (PCR) Not detected, Parainfluenza 2 (PCR) Not detected, Parainfluenza 3 (PCR) Not detected, Parainfluenza 4 (PCR) Not detected, RSV (PCR) Not detected, Entero/Rhino (PCR) Not detected I & O for Last 24 hours: Intake & Output 12/27/24 12/28/24 12/29/24 12/30/24 23:59 23:59 23:59 23:59 Intake Total 1000 / 1000 950 / 950 Output Total 0 / 0 Balance 1000 / 1000 950 / 950 Weight 56.245 kg 53.841 kg Constitutional Constitutional: no acute distress *Routine HEENT Exam Head: Present normocephalic Eye: Present EOMI and PERRL ENT: Present mucous membranes moist *Routine Neck Exam Neck: Present supple; Absent lymphadenopathy *Routine Respiratory Exam Respiratory: Present CTA bilaterally *Routine Cardiovascular Exam Cardiovascular: Present RRR *Routine Abdominal Exam Abdominal: Present soft and normoactive bowel sounds; Absent tenderness *Routine Extremities Exam Extremities: Absent cyanosis, clubbing or edema *Routine Skin Exam Skin: Present warm; Absent rash *Routine Neurological Exam Neurological: Present alert and oriented X3 Results Data Completed and Pending Labs on day of discharge: Labs from last 24 hours 12/30/24 12/30/24 12/30/24 09:40 05:39 05:32 WBC 3.6 L D RBC 4.10 L Hgb 12.0 L D Hct 37.6 MCV 91.7 MCH 29.3 MCHC 31.9 RDW 14.5 Plt Count 158 D MPV 10.8 H Neut % (Auto) 57.4 Lymph % (Auto) 29.8 [place] % (Auto) 12.2 H Eos % (Auto) 0.0 L Baso % (Auto) 0.3 Neut # (Auto) 2.1 Lymph # (Auto) 1.1 [place] # (Auto) 0.4 Eos # (Auto) 0.0 Baso # (Auto) 0.0 Retic Count (auto) 0.7 L PT INR Sodium 136 Potassium 4.4 D Chloride 103 Carbon Dioxide 28 Anion Gap 9.4 BUN 10 Creatinine 0.80 Estimated Creat Clear 43 Estimated GFR 71 Est GFR ( Amer) 85 Glucose 102 H D Hemoglobin A1c 5.5 5.5 Lactate 0.7 Calcium 8.6 Magnesium Iron 33 L TIBC 222 L Iron Saturation 14.36172 L Ferritin 76.3 Total Bilirubin 0.4 GGT 17 AST 431 H* D ALT 390 H* Alkaline Phosphatase 55 Ammonia < 9 L Total Protein 6.8 Albumin 3.9 D Globulin 2.9 Albumin/Globulin Ratio 1.3 Triglycerides 104 Cholesterol 143 LDL Cholesterol Direct < 30.00 L VLDL Cholesterol 21 HDL Cholesterol 67 H Cholesterol/HDL Ratio 2.1 Lipase Vitamin B12 355 Folate 10.00 TSH Urine Color Urine Appearance Urine pH Ur Specific Coy Urine Protein Urine Glucose (UA) Urine Ketones Urine Blood Urine Nitrate Urine Bilirubin Urine Urobilinogen Ur Leukocyte Esterase Urine RBC Urine WBC Ur Squamous Epith Cells Urine Bacteria Acetaminophen Chlamy pneumoniae PCR Not detected Adenovirus (PCR) Not detected B. pertussis DNA (PCR) Not detected Coronavirus OC43 (PCR) Not detected Coronavirus HKU1 (PCR) Not detected Coronavirus 229E (PCR) Not detected SARS-CoV-2 (PCR) Detected A Coronavirus NL63 (PCR) Not detected Human Metapneumovir PCR Not detected Influenza A (H1) PCR Not detected Influ A (H1N1/09) PCR Not detected Influenza A (H3) PCR Not detected Influenza Type A (PCR) Not detected Influenza Type B (PCR) Not detected M. pneumoniae (PCR) Not detected Parainfluenza 1 (PCR) Not detected Parainfluenza 2 (PCR) Not detected Parainfluenza 3 (PCR) Not detected Parainfluenza 4 (PCR) Not detected RSV (PCR) Not detected Entero/Rhino (PCR) Not detected 12/30/24 12/30/24 12/29/24 05:31 02:45 22:05 WBC 5.8 RBC 4.92 Hgb 14.4 Hct 44.6 MCV 90.7 MCH 29.3 MCHC 32.3 RDW 14.3 Plt Count 222 MPV 10.8 H Neut % (Auto) 59.6 Lymph % (Auto) 27.1 [place] % (Auto) 12.9 H Eos % (Auto) 0.0 L Baso % (Auto) 0.2 Neut # (Auto) 3.5 Lymph # (Auto) 1.6 [place] # (Auto) 0.8 Eos # (Auto) 0.0 Baso # (Auto) 0.0 Retic Count (auto) PT 10.7 INR 0.96 Sodium 134 L Potassium 3.3 L Chloride 93 L Carbon Dioxide 28 Anion Gap 16.3 H BUN 12 Creatinine 0.90 Estimated Creat Clear 45 Estimated GFR 62 Est GFR ( Amer) 74 Glucose 151 H Hemoglobin A1c Lactate 0.8 2.5 H Calcium 9.9 Magnesium 2.2 Iron TIBC Iron Saturation Ferritin 79.8 Total Bilirubin 0.7 GGT AST 669 H* ALT 517 H* Alkaline Phosphatase 68 Ammonia Total Protein 8.6 H Albumin 5.0 Globulin 3.6 H Albumin/Globulin Ratio 1.4 Triglycerides Cholesterol LDL Cholesterol Direct VLDL Cholesterol HDL Cholesterol Cholesterol/HDL Ratio Lipase 142 Vitamin B12 Folate TSH 1.75 Urine Color Urine Appearance Urine pH Ur Specific Coy Urine Protein Urine Glucose (UA) Urine Ketones Urine Blood Urine Nitrate Urine Bilirubin Urine Urobilinogen Ur Leukocyte Esterase Urine RBC Urine WBC Ur Squamous Epith Cells Urine Bacteria Acetaminophen < 10 L Chlamy pneumoniae PCR Adenovirus (PCR) B. pertussis DNA (PCR) Coronavirus OC43 (PCR) Coronavirus HKU1 (PCR) Coronavirus 229E (PCR) SARS-CoV-2 (PCR) Coronavirus NL63 (PCR) Human Metapneumovir PCR Influenza A (H1) PCR Influ A () PCR Influenza A (H3) PCR Influenza Type A (PCR) Influenza Type B (PCR) M. pneumoniae (PCR) Parainfluenza 1 (PCR) Parainfluenza 2 (PCR) Parainfluenza 3 (PCR) Parainfluenza 4 (PCR) RSV (PCR) Entero/Rhino (PCR) 12/29/24 21:57 WBC RBC Hgb Hct MCV MCH MCHC RDW Plt Count MPV Neut % (Auto) Lymph % (Auto) [place] % (Auto) Eos % (Auto) Baso % (Auto) Neut # (Auto) Lymph # (Auto) [place] # (Auto) Eos # (Auto) Baso # (Auto) Retic Count (auto) PT INR Sodium Potassium Chloride Carbon Dioxide Anion Gap BUN Creatinine Estimated Creat Clear Estimated GFR Est GFR ( Amer) Glucose Hemoglobin A1c Lactate Calcium Magnesium Iron TIBC Iron Saturation Ferritin Total Bilirubin GGT AST ALT Alkaline Phosphatase Ammonia Total Protein Albumin Globulin Albumin/Globulin Ratio Triglycerides Cholesterol LDL Cholesterol Direct VLDL Cholesterol HDL Cholesterol Cholesterol/HDL Ratio Lipase Vitamin B12 Folate TSH Urine Color Yellow Urine Appearance Cloudy Urine pH 6.0 Ur Specific Coy >= 1.030 Urine Protein 2+ A Urine Glucose (UA) Negative Urine Ketones Negative Urine Blood Trace-i Urine Nitrate Negative Urine Bilirubin 1+ A Urine Urobilinogen 1.0 Ur Leukocyte Esterase 1+ A Urine RBC Occasional Urine WBC 5-10 Ur Squamous Epith Cells Occasional Urine Bacteria 4+ Acetaminophen Chlamy pneumoniae PCR Adenovirus (PCR) B. pertussis DNA (PCR) Coronavirus OC43 (PCR) Coronavirus HKU1 (PCR) Coronavirus 229E (PCR) SARS-CoV-2 (PCR) Coronavirus NL63 (PCR) Human Metapneumovir PCR Influenza A (H1) PCR Influ A () PCR Influenza A (H3) PCR Influenza Type A (PCR) Influenza Type B (PCR) M. pneumoniae (PCR) Parainfluenza 1 (PCR) Parainfluenza 2 (PCR) Parainfluenza 3 (PCR) Parainfluenza 4 (PCR) RSV (PCR) Entero/Rhino (PCR) DS: Diagnosis Discharge Diagnosis (1) Transaminitis: Status: Acute Code(s): R74.01 - Elevation of levels of liver transaminase levels (2) Chronic constipation: Status: Acute Code(s): K59.09 - Other constipation (3) Bloating: Status: Acute Code(s): R14.0 - Abdominal distension (gaseous) (4) RLQ abdominal pain: Status: Acute Code(s): R10.31 - Right lower quadrant pain (5) COVID-19: Status: Acute Code(s): U07.1 - COVID-19 Meds Home Medications and Allergies Home Medications ?Medication ?Instructions ?Recorded ?Confirmed ?Type calcium carbonate 500 mg PO BID 12/30/24 12/30/24 History cefdinir 300 mg capsule 300 mg PO BID 4 days #8 caps 12/30/24 Rx cetirizine 10 mg tablet 10 mg PO DAILY 12/30/24 12/30/24 History fluoxetine 10 mg capsule 10 mg PO 1600 12/30/24 12/30/24 History fluoxetine 40 mg capsule 40 mg PO DAILY 12/30/24 12/30/24 History latanoprost 0.005 % eye drops 2 drp Eye-Both HS 12/30/24 12/30/24 History losartan 50 mg tablet 50 mg PO BID 12/30/24 12/30/24 History montelukast 10 mg tablet 10 mg PO HS 12/30/24 12/30/24 History omeprazole 20 mg capsule,delayed 20 mg PO DAILY 12/30/24 12/30/24 History release simvastatin 20 mg tablet 20 mg PO HS 12/30/24 12/30/24 History Held on 12/30/24. Instructions: Resume on 01/13/25. Hold until follow-up with PCP, as it can make liver function worse. New Prescriptions to Start Prescriptions: Barak Mejia Allergies Allergy/AdvReac Type Severity Reaction Status Date / Time fluticasone (From Advair AdvReac Chest Pain Verified 12/30/24 01:24 Diskus) paroxetine (From Paxil) AdvReac Heartburn Verified 12/30/24 01:24 salmeterol (From Advair AdvReac Chest Pain Verified 12/30/24 01:24 Diskus) Discharge Plan Disposition Patient Disposition: Home, Self-Care Condition: Fair Follow up Plan Follow up with: Adam Kent MD [Referring, Medical] - 01/12/25 5:30 pm Prescriptions/Medication Reconciliation: New cefdinir 300 mg capsule 300 mg PO BID 4 Days Qty: 8 0RF Continued losartan 50 mg tablet 50 mg PO BID Patient Comments: TAKE 1 TABLET BY MOUTH TWICE DAILY fluoxetine 40 mg capsule 40 mg PO DAILY Patient Comments: TAKE 1 CAPSULE BY MOUTH ONCE DAILY cetirizine 10 mg tablet 10 mg PO DAILY calcium carbonate 500 mg calcium (1,250 mg) tablet 500 mg PO BID omeprazole 20 mg capsule,delayed release(DR/EC) 20 mg PO DAILY Patient Comments: 20 MG ORALLY DAILY FOR REFLUX FOR 30 DAYS montelukast 10 mg tablet 10 mg PO HS Patient Comments: TAKE 1 TABLET BY MOUTH ONCE DAILY AT BEDTIME latanoprost 0.005 % drops 2 drp Eye-Both HS Patient Comments: INSTILL ONE DROP TO BOTH EYES EVERY EVENING NO ADDITIONAL REFILLS UNTIL SEEN IN OFFICE fluoxetine 10 mg capsule 10 mg PO 1600 Patient Comments: TAKE 1 CAPSULE BY MOUTH ONCE DAILY IN THE AFTERNOON Held simvastatin 20 mg tablet 20 mg PO HS Hold Instructions: Resume on 01/13/25. Hold until follow-up with PCP, as it can make liver function worse. Patient Comments: TAKE 1 TABLET BY MOUTH ONCE DAILY AT BEDTIME Problem Reconciliation Problems Reviewed?: Yes Patient Discharge Instructions Additional Instructions: Unfortunately, due to your liver function (which is getting better) we are not able to do Paxlovid at this time. Please follow-up with your PCP within 1 week for further management. Patient Instructions: DI for Hypokalemia Print Language: Upper Sorbian Providers Primary Care Provider: Provider,Referral Admit Provider: Barak Arciniega Attending Provider: Barak Arciniega
[2024-12-30] MEDS: 0.9 % SODIUM CHLORIDE 1000ML 500 ML IV (15:29)
[2024-12-30 15:39] VITALS: BP 124/71; PULSE 84; RESP 18; TEMP 36.8; O2SAT 96
--- NOTE | 2024-12-30 16:10 | HMH.PTEV ---
Physical Therapy Evaluation Rehab PT IP Evaluation Start: 12/30/24 15:10 Freq: ONCE Status: Active Protocol: Document 12/30/24 16:07 CARMEN (Rec: 12/30/24 16:10 CARMEN [id number]) Subjective/History History History 74-year-old female who has a past medical history significant for diverticulosis, hyperlipidemia, GERD, and hypertension who presents with a chief complaint of bilateral lower abdominal pain and back pain. Due to patient's symptomology she presented to the emergency room for evaluation. While in the emergency room, CT scan of the abdomen pelvis was negative for any acute intra-abdominal or intrapelvic process. Patient had an incidental finding of an elevated AST and ALT. Due to these findings, patient has been admitted for further management. Subjective Subjective Pt presents awake supine in bed, agrees to mobility assessment. She reports she lives alone, 1-2 TAMRA the home, and she is generally independent with all mobility without an AD. [facility] How much help from another person do you currently need... Turning from your None back to your side while in a flat bed without using bedrails? Moving from lying on None back to sitting on the side of a flat bed without using bedrails? Moving to and from a None bed to a chair ( including a wheelchair)? Standing up from a None chair using your arms? (e.g., wheelchair, bedside chair) Walking in hospital None room? Climbing 3-5 steps None with a railing? Mobility Score 24 Mobility Level [facility] Mobility Walk 250 feet or more Mobility Calculator Rehab PT IP Eval Objective Appearance Patient Behavior Appropriate Patient Orientation Person,Place,Time Difficulty following none instructions Speech Pattern Clear Ambulation Patient Able to Yes Ambulate Ambulation Observation IP General Gait No Deviations/Normal Pattern Observation Ambulation Distance 40 (feet) Ambulation Assistive None Device Ambulation Ability Independent Balance Ability to Arise Able, uses arms to help Sitting Balance Steady, safe Standing Balance Steady, wide stance Dynamic Sitting Good Balance Ability Dynamic Standing Good Balance Ability Transfers Bed Transfer Ability Independent Chair Transfer Independent Ability Sit to Stand Bed Independent Transfer Ability Sit to Stand Chair Independent Transfer Ability ROM All Extremities PT ROM Status WFL MMT All Extremities PT MMT WFL Rehab PT IP prob,goals,plan Problems Date of Evaluation: 12/30/24 Rehab Potential Rehab Potential Innapropriate for Skilled Therapy Discharge Plan PT Discharge Plan Pt remains independent with all mobility at this time and has no current acute therapy needs. Eval Complexity Eval Charge Codes 10625 - Moderate Complexity PHYSICIAN CERTIFICATION: I certify the specified therapy services for Sharon Raphael are required, authorized, and reviewed every 30 days.
[2024-12-30 17:43] LABS: Albumin Level 3.7 g/dl (3.5-5.0); Chloride 103 mmol/L (98-107); Potassium 3.7 mmoL/L (3.5-5.1); Sodium 139 mmol/L (136-145)
[2024-12-30 17:46] LABS: Alanine Aminotransferase 297 U/L (12-78); Albumin/Globulin Ratio 1.4 (1.1-1.8); Alkaline Phosphatase 51 U/L (38-126); Anion Gap 10.7 mEq/L (5-15); Aspartate Amino Transferase 300 U/L (14-36); Bilirubin,Total 0.4 mg/dl (0.2-1.3); Blood Urea Nitrogen 12 mg/dl (7-17); Calcium 8.5 mg/dl (8.4-10.2); Carbon Dioxide 29 mmol/L (22.0-30.0); Creatinine Clearance Estimated 43 mL/min (50-200); Creatinine,Serum 0.70 mg/dl (0.52-1.04); Estimated Glomerular Filt Rate 82 ml/min (>60); GFR (African American) 100 ML/MIN (>60); Globulin 2.6 g/dL (1.3-3.2); Glucose 104 mg/dl (74-100); Total Protein,Serum 6.3 g/dl (6.3-8.2)
[2024-12-31 08:13] LABS: Cytomegalovirus (CMV) Ab, IgG 6.00 U/mL (0.00-0.59)
[2024-12-31 12:19] LABS: Cytomegalovirus (CMV) Ab, IgM 32.3 AU/mL (0.0-29.9)
[2024-12-31 16:13] LABS: EBV Nuclear Antigen Ab, IgG <18.0 U/mL (0.0-17.9)
[2025-01-01 08:22] LABS: Antinuclear Antibodies, IFA Negative (.)
--- NOTE | 2025-01-01 10:14 | SW/DCPLANNER ---
Phoned patient x2. Left message with name and a call back number. Wilma Mccollum
--- NOTE | 2025-01-01 10:59 | PC.NURSE ---
prelim urine culture forwarded to the hospitalist as she was admitted.
--- NOTE | 2025-01-01 12:01 | CARE MANAGER ---
Spoke with patient's daughter, via phone to discuss recent discharge. Patient received medication prior to discharge, and is holding medication that she was told to at discharge. No concerns voiced at time of call.
--- NOTE | 2025-01-02 07:53 | PC.NURSE ---
Final urine culture forewarded to the hospitalist as she was admitted.
== END 2024-12-30 18:27 | disposition home or self-care (01) ==
LOC: ER 23:54 → 2ND 12-30 00:05
PROVIDERS: Nurse Practitioner Family; Admitting Provider Student in an Organized Health Care Education/Training Program; Emergency Provider Student in an Organized Health Care Education/Training Program; Visit Provider Student in an Organized Health Care Education/Training Program
DX: B17.9 Acute viral hepatitis, unspecified (principal); R74.01 Elevation of levels of liver transaminase levels; E87.20 Acidosis, unspecified; R73.9 Hyperglycemia, unspecified; K59.09 Other constipation; U07.1 COVID-19; N39.0 Urinary tract infection, site not specified; F41.9 Anxiety disorder, unspecified; F32.A Depression, unspecified; K21.9 Gastro-esophageal reflux disease without esophagitis; I10 Essential (primary) hypertension; E87.6 Hypokalemia; E78.5 Hyperlipidemia, unspecified; K82.4 Cholesterolosis of gallbladder; J45.909 Unspecified asthma, uncomplicated; Z88.8 Allergy status to other drugs, medicaments and biological substances; Z79.899 Other long term (current) drug therapy
CPT/HCPCS: 0223U; 36415; 74177; 76705; 80053; 80061; 80074; 80329; 81001; 82103; 82104; 82105; 82140; 82390; 82607; 82728; 82746; 82977; 83036; 83540; 83550; 83605; 83690; 83735; 84443; 84630; 85025; 85044; 85610; 86038; 86225; 86644; 86645; 86664; 86665; 87086; 87088; 87186; 96361; 96365; 96372; 96375; 97162; 99285; G0378; J0696; J1650; J2270; J2405; J7030; Q9967